=== PATIENT | female | born 1955 | race Caucasian/White ===

== ENCOUNTER 2017-02-16 09:53 | Day surgery (SDC) | payer OTHER, MEDICARE ==
[~2017-02-16] VITALS: Ht 12.7 cm; Wt 70.3 kg
[~2017-02-16 09:53] MED LIST: CALCIUM 600 +1 EAC2 PO; FLONASE16 G1 BOTH NARES; ICAPS TABLET1 EACH PO; KEPPRA750 MG PO; KRILL OIL 3001 EACH PO; MAGNESIUM400 M1 PO; MELATONIN5 M1 PO; MIRALAX17 GM PO; NEXIUM20 MG PO; ONE DAILY1 EAC3 PO; PROBIOTIC1 EAC2 PO; SENNA8.6 MG PO; TYLENOL EXTRA500 MG PO; VALIUM5 MG PO
[2017-02-16 10:49] VITALS: BP 127/61
[2017-02-16 18:42] VITALS: BP 129/61
[2017-02-17 00:43] VITALS: BP 97/53
[2017-02-17 01:13] VITALS: BP 133/63
[2017-02-17 05:03] VITALS: BP 98/53
[2017-02-17 07:15] VITALS: BP 104/65
[2017-02-17 11:32] VITALS: BP 122/54
== END 2017-02-17 14:26 | disposition home or self-care (01) ==
LOC: SDC 09:53 → ENRESERV 16:23 → 2EASTP 16:27 → 2SOUTH 16:27 → ENRESERV 17:29 → 2EASTP 17:50
PROC: 0H0V0ZZ Alteration of Bilateral Breast, Open Approach (ICD-10-PCS; principal; 2017-02-16)
DX: N62 Hypertrophy of breast (principal); K21.9 Gastro-esophageal reflux disease without esophagitis; G40.909 Epilepsy, unspecified, not intractable, without status epilepticus; F79 Unspecified intellectual disabilities
CPT/HCPCS: 88305; G0378; J0131; J0690; J1100; J1170; J2405; J3010